=== PATIENT | female | born 1970 | race Caucasian/White ===

== ENCOUNTER 2019-06-24 08:29 | Inpatient (IN) | payer OTHER ==
[~2019-06-24] VITALS: Ht 149.9 cm; Wt 55.3 kg
[2019-06-24 08:56] VITALS: BP 109/64
[2019-06-24 11:35] LABS: PLATELET COUNT 273 x10^3mcL (130-400)
[2019-06-24 12:25] LABS: RED CELL DISTRIBUTION WIDTH 21.9 % (11.5-14.5)
[2019-06-24 12:36] LABS: BAND NEUTROPHIL 0 % (0-10); BASOPHIL 0 % (0-2); MONOCYTE 1 % (0-7); SEGMENTED NEUTROPHILS 90 % (37-75)
[2019-06-24 12:37] LABS: rbc morphology (normal/abnorm) ABNORMAL (NORMAL)
[2019-06-24 12:38] LABS: PLATELET MORPHOLOGY PLATELETS NORMAL
[2019-06-24 15:18] VITALS: BP 99/56
[2019-06-24 17:12] LABS: PLATELET COUNT 267 x10^3mcL (130-400)
[2019-06-24 17:43] LABS: BAND NEUTROPHIL 0 % (0-10); BASOPHIL 0 % (0-2); MONOCYTE 6 % (0-7); SEGMENTED NEUTROPHILS 58 % (37-75); rbc morphology (normal/abnorm) ABNORMAL (NORMAL)
[2019-06-24 17:46] LABS: PLATELET MORPHOLOGY PLATELETS NORMAL
[2019-06-24 21:00] VITALS: BP 135/72
[2019-06-24 22:58] LABS: CALCIUM 7.9 mg/dL (8.5-10.1); CARBON DIOXIDE 24.5 mmol/L (21-32); CHLORIDE SERUM 108 mmol/L (98-107); CREATININE SERUM 0.5 mg/dL (0.6-1.0); GFR1 > 60 mL/min; GLUCOSE SERUM 90 mg/dL (74-106); POTASSIUM SERUM 3.9 mmol/L (3.5-5.1); SODIUM SERUM 140 mmol/L (136-145)
[2019-06-25 05:38] VITALS: BP 112/61
[2019-06-25 09:16] VITALS: BP 96/62
[2019-06-25 14:41] VITALS: BP 96/62
== END 2019-06-25 15:10 | disposition home or self-care (01) | DRG 363 ==
LOC: DS 08:29 → MA 09:00 → DS 09:00 → EDSTATUS 09:00 → NM 09:00 → OR 11:00 → MU 13:16
PROVIDERS: Anesthesiology; ADMIT Surgery
PROC: 07B60ZZ Excision of Left Axillary Lymphatic, Open Approach (ICD-10-PCS; 2019-06-24)
PROC: 0HBU0ZZ Excision of Left Breast, Open Approach (ICD-10-PCS; principal; 2019-06-24 11:00)
DX: D05.92 Unspecified type of carcinoma in situ of left breast (principal); D64.9 Anemia, unspecified
CPT/HCPCS: 88344; 88361; G0378; J0690; J2175; J2250; J2405; J2704; J3010; J3490; J7050; J7120; P9016; Q9968